=== PATIENT | female | born 1995 | race Caucasian/White ===

== ENCOUNTER 2020-11-02 01:20 | Emergency (ER) | payer SELFPAY ==
[~2020-11-02] VITALS: Ht 167.6 cm; Wt 74.8 kg
[2020-11-02 01:25] VITALS: BP 156/114
--- NOTE | 2020-11-02 01:25 | NUR ---
Patient being evaluated by physician at bedside.
--- NOTE | 2020-11-02 01:30 | NUR ---
PATIENT BIB [facility] [employer]. PATIENT EXAMINED BY DR. ROCHA. PATIENT MEDICALLY CLEARED AND RELEASED IN CUSTODY IN STABLE CONDITION. ORIGINAL PRE-BOOK FORM GIVEN TO OFFICER RICHAR, #[id number].
== END 2020-11-02 01:30 ==
LOC: EDBD 01:20 → MED 01:20
DX: F10.129 Alcohol abuse with intoxication, unspecified (principal); F17.210 Nicotine dependence, cigarettes, uncomplicated; Z02.89 Encounter for other administrative examinations; Y90.9 Presence of alcohol in blood, level not specified
CPT/HCPCS: 99283